=== PATIENT | female | born 1960 ===

== ENCOUNTER 2021-06-08 20:11 | Emergency (ER) | payer SELFPAY ==
[~2021-06-08] VITALS: Ht 157.5 cm; Wt 82.0 kg
[2021-06-08 20:14] VITALS: BP 130/94
== END 2021-06-08 21:03 | disposition left against medical advice (07) ==
LOC: ER 20:11
DX: Z53.21 Procedure and treatment not carried out due to patient leaving prior to being seen by health care provider (principal)